=== PATIENT | female | born 1995 | race Caucasian/White ===

== ENCOUNTER 2017-07-31 11:28 | Outpatient (CLI) | payer OTHER ==
[~2017-07-31] VITALS: Ht 167.6 cm; Wt 71.4 kg
[~2017-07-31 11:28] MED LIST: BACTRIM,SEPT1 TABLE1 PO; KEFLEX500 MG PO
[2017-07-31 11:52] VITALS: BP 105/58
[2017-07-31] MEDS ORDERED: PRENATAL TABLE1 EAC3 PO (12:22)
[2017-07-31 12:25] VITALS: BP 107/55
[2017-07-31 13:54] VITALS: BP 112/56
[2017-07-31 15:07] LABS: BASOPHIL (%) 0.2 % (0-1); EOSINOPHIL (%) 0.7 % (0-5); EOSINOPHIL COUNT 0.1 K/uL (0-0.3); HEMATOCRIT 30.1 % (36.0-46.0); HEMOGLOBIN 9.5 G/DL (11.9-15.5); IMMATURE GRANULOCYTE (%) 0.6 % (0.0-0.7); LYMPHOCYTE (%) 14.7 % (15-42); LYMPHOCYTE COUNT 1.3 K/uL (1.0-2.8); MCH 25.5 PG (29.0-34.0); MCHC 31.6 G/DL (30.0-36.0); MCV 80.9 FL (83-99); MONOCYTE (%) 4.7 % (3-12); MONOCYTE COUNT 0.4 K/uL (0-0.8); NEUTROPHIL (%) 79.1 % (45-76); NEUTROPHIL COUNT 6.7 K/uL (1.8-6.4); PLATELET COUNT 247 K/uL (156-360); RBC DIS.WIDTH-CV 14.8 % (11.8-14.6); RBC DIS.WIDTH-SD 43.3 % (39-53); RED BLOOD COUNT 3.72 M/uL (3.80-5.20); WHITE BLOOD COUNT 8.5 K/uL (4.1-10.2)
== END 2017-07-31 16:43 | disposition home or self-care (01) ==
LOC: EME 11:28 → EDSTATUS 11:33 → LDRP-OP 11:49 → 2WEST 11:50
PROVIDERS: Nurse Practitioner
DX: O26.893 Other specified pregnancy related conditions, third trimester (principal); R42 Dizziness and giddiness; K52.9 Noninfective gastroenteritis and colitis, unspecified; Z3A.30 30 weeks gestation of pregnancy
CPT/HCPCS: 59025; 85025; G0378; J7120